=== PATIENT | male | born 1955 | race Two or more races ===

== ENCOUNTER 2022-05-17 07:55 | Day surgery (SDC) | payer OTHER ==
[~2022-05-17] VITALS: Ht 165.1 cm; Wt 81.2 kg
[~2022-05-17 07:55] MED LIST: ATACAND32 MG PO; GLIMEPIRIDE1 M1 PO; GLUMETZA500 MG PO; HYDROCHLOROTHIA25 MG PO; NORVASC10 MG PO; SYNTHROID100 MCG PO; TOPROL XL100 M1 PO; TRILIPIX135 MG PO
== END 2022-05-17 20:55 | disposition home or self-care (01) ==
LOC: CIR.AMB 07:55
PROVIDERS: ATTEND Urology
DX: N20.0 Calculus of kidney (principal); Z20.822 Contact with and (suspected) exposure to COVID-19; I10 Essential (primary) hypertension; E78.5 Hyperlipidemia, unspecified; Z86.16 Personal history of COVID-19; Z87.891 Personal history of nicotine dependence; E03.9 Hypothyroidism, unspecified; Z85.46 Personal history of malignant neoplasm of prostate; Z79.84 Long term (current) use of oral hypoglycemic drugs
CPT/HCPCS: 52356; C1758